=== PATIENT | male | born 1995 | race Caucasian/White ===

== ENCOUNTER 2024-06-29 07:41 | Day surgery (SDC) | payer OTHER ==
[~2024-06-29 07:41] MED LIST: Lactated Ringers 1,000 ML IV SCH
[2024-06-29] MEDS: Lactated Ringers 1,000 ML IV SCH (07:57)
[2024-06-29] MEDS ORDERED: Propofol 200 MG/20 ML SDV ONE ×2 (08:35→09:29)
[2024-06-29] MEDS ORDERED: fentaNYL 100 MCG/2 ML SDV ONE (09:29)
== END 2024-06-29 11:30 | disposition home or self-care (01) ==
LOC: VM.SDS 07:41
PROVIDERS: ATTEND Student in an Organized Health Care Education/Training Program
DX: D12.3 Benign neoplasm of transverse colon (principal); I10 Essential (primary) hypertension; F33.1 Major depressive disorder, recurrent, moderate; F41.9 Anxiety disorder, unspecified; Z79.899 Other long term (current) drug therapy
CPT/HCPCS: 00811; J2704; J3010; J7120